=== PATIENT | male | born 2000 | race Caucasian/White ===

== ENCOUNTER → 2021-02-17 | Outpatient (CLI) | payer BC ==
--- NOTE | 2021-02-17 08:23 | CT ---
EXAMINATION TYPE: CT soft tissue neck w con DATE OF EXAM: 02/17/2021 8:00 AM COMPARISON: HISTORY: Wt. Loss, Cough CT DLP: 275.2 mGycm Automated exposure control for dose reduction was used. CONTRAST: CT scan of the neck is performed following with IV Contrast, patient injected with 100 mL of Isovue 3 00. Axial images are obtained, coronal and sagittal reformatted images are reviewed. FINDINGS: Lung apices are clear. Thyroid gland enhances normally. Visualized carotid arteries are pat ent. Osseous structures intact. Vocal cords have a normal appearance. Recent tongue oropharynx and nasopharynx are symmetric. Changes of mild chronic sinusitis. Orbits are symmetric. Mastoid air cells are clear. Parotid and submandibular glands have a normal appearance. No pathologic adenopathy identified. IMPRESSION: No acute process.
== END | disposition home or self-care (01) ==
LOC: RADCTMAIN 07:22
PROVIDERS: ATTEND Family Medicine
DX: R05.9 Cough, unspecified (principal); R63.4 Abnormal weight loss
CPT/HCPCS: 70491